=== PATIENT | male | born 1980 | race Caucasian/White ===

== ENCOUNTER → 2020-04-29 | Outpatient (CLI) | payer BC ==
[~2020-04-29] MED LIST: COLE1TAB2 PO; CYCL-259 PO; DAPA10TA PO; GABA300C PO; GLIM4TAB8 PO; LIPA1CAP48 PO; METF500T17 PO; METO25TA91 PO; OMEP-110 PO; OXYC-307 PO; SEMA1PEN SC
[2020-04-29 14:36] LABS: MICROSCOPIC NOT IND
[2020-04-29 14:38] LABS: BASOPHILS % (AUTO) 1 % (0-1); EOSINOPHILS % (AUTO) 4 % (1-7); LYMPHOCYTES % (AUTO) 41 % (22-44); MEAN CORPUSCULAR HEMOGLOBIN 27.3 pg (27.5-34.5); MEAN CORPUSCULAR HGB CONC 32.8 g/dL (33.2-36.2); MEAN PLATELET VOLUME 7.7 fL (7.4-10.4); MONOCYTES % (AUTO) 9 % (2-9); NEUTROPHILS % (AUTO) 46 % (42-75); PLATELET COUNT 284 x10^3/uL (130-400); RED BLOOD COUNT 5.39 x10^6/uL (4.38-5.82); RED CELL DISTRIBUTION WIDTH 14.7 % (9.4-14.8)
[2020-04-29 14:43] LABS: MD NO
[2020-04-29 14:45] LABS: INTERNATIONAL NORMALIZED RATIO 0.96 (0.93-1.1); PROTHROMBIN TIME 9.9 Seconds (9.6-11.5)
[2020-04-29 14:48] LABS: ALBUMIN 3.7 g/dL (3.4-5.0); ANION GAP 7 mmol/L (5-15); CALCIUM 9.5 mg/dL (8.5-10.1); CHLORIDE 105 mmol/L (98-107)
[2020-04-29 14:52] LABS: ALANINE AMINOTRANSFERASE 36 U/L (12-78); ALKALINE PHOSPHATASE 113 U/L (45-117); BILIRUBIN,TOTAL 0.3 mg/dL (0.2-1.0); CREATININE 0.82 mg/dL (0.7-1.3); TOTAL PROTEIN 7.7 g/dL (6.4-8.2)
== END | disposition home or self-care (01) ==
LOC: STAR 13:22
PROVIDERS: ATTEND Neurological Surgery
DX: Z01.812 Encounter for preprocedural laboratory examination (principal); Z01.811 Encounter for preprocedural respiratory examination; Z20.828 Contact with and (suspected) exposure to other viral communicable diseases; M51.16 Intervertebral disc disorders with radiculopathy, lumbar region; R82.90 Unspecified abnormal findings in urine; R94.31 Abnormal electrocardiogram [ECG] [EKG]; M51.26 Other intervertebral disc displacement, lumbar region; M48.061 Spinal stenosis, lumbar region without neurogenic claudication; R79.1 Abnormal coagulation profile
CPT/HCPCS: 36415; 71046; 80053; 81003; 85025; 85610; 85730; 87635; 93005

== ENCOUNTER 2020-05-03 11:22 | Inpatient (IN) | payer BC ==
[~2020-05-03] VITALS: Ht 180.3 cm; Wt 110.2 kg
[2020-05-03] MEDS ORDERED: CHLORHEXIDINE 15 ML UDC ONE (12:34)
[2020-05-03] MEDS ORDERED: CHLORHEXIDINE 15 ML UDC MM STA (12:57)
[2020-05-03] MEDS: LACTATED RINGERS 1,000 ML IV SCH ×2 (13:00→13:10)
[2020-05-03] MEDS ORDERED: FENTANYL PF 250 MCG/5ML ONE ×3 (13:18→15:11)
[2020-05-03] MEDS ORDERED: MIDAZOLAM 1 MG/ML, 2ML ONE (13:18)
[2020-05-03] MEDS ORDERED: EPINEPHRINE 1 MG/ML, 1ML ONE (13:21)
[2020-05-03] MEDS ORDERED: THROMBIN 5,000 UNIT VIAL TP ONE (13:21)
[2020-05-03] MEDS ORDERED: HEPARIN 1,000 UNITS/ML, 30ML ONE (13:21)
[2020-05-03] MEDS ORDERED: BUPIVACAINE/PF 0.5% ONE (13:21)
[2020-05-03] MEDS ORDERED: BACITRACIN 50,000 UNIT ONE (13:22)
[2020-05-03] MEDS ORDERED: ONDANSETRON 2MG/ML, 2ML IVPush PRN ×2 (13:30→16:30)
[2020-05-03] MEDS ORDERED: hydrALAzine 20 MG/ML, 1ML IV PRN (13:30)
[2020-05-03] MEDS ORDERED: LABETALOL 5MG/ML, 20ML IV PRN (13:30)
[2020-05-03] MEDS ORDERED: OXYcodone 5 MG/5 ML ORAL.SOL UDC PO PRN (13:30)
[2020-05-03] MEDS ORDERED: ACETAMINOPHEN 325 MG TABLET PO PRN ×2 (13:30→16:30)
[2020-05-03] MEDS ORDERED: morphine SULFATE 10 MG/ML, 1ML IVPush PRN (13:30)
[2020-05-03] MEDS ORDERED: MEPERIDINE/PF 25MG/0.5ML IVPush PRN (13:30)
[2020-05-03] MEDS ORDERED: CEFAZOLIN 1,000 MG ONE (14:34)
[2020-05-03] MEDS ORDERED: GLYCOPYRROLATE 0.2MG/1ML, 5ML ONE (14:34)
[2020-05-03] MEDS ORDERED: PROPOFOL 10 MG/ML, 20ML ONE (14:34)
[2020-05-03] MEDS ORDERED: ROCURONIUM 10MG/ML,5ML ONE (14:34)
[2020-05-03] MEDS ORDERED: NEOSTIGMINE 1 MG/ML, 10ML ONE (14:34)
[2020-05-03] MEDS ORDERED: METOPROLOL 1 MG/ML, 5ML ONE (15:24)
[2020-05-03] MEDS ORDERED: FENTANYL PF 100 MCG/2ML ONE ×2 (15:59→17:04)
[2020-05-03] MEDS ORDERED: PROMETHAZINE 25 MG/ML, 1ML IM PRN (16:30)
[2020-05-03] MEDS ORDERED: MAGNESIUM HYDROXIDE 8%, 30ML UDC PO PRN (16:30)
[2020-05-03] MEDS ORDERED: [UNRECOGNIZED DRUG - OTHER] PO SCH (16:30)
[2020-05-03] MEDS ORDERED: ENOXAPARIN 40 MG/0.4 ML SQ SCH (16:30)
[2020-05-03] MEDS ORDERED: BISACODYL 10 MG SUPP PR PRN (16:30)
[2020-05-03] MEDS ORDERED: METHOCARBAMOL 1,000 MG in DEXTROSE 5% 100 ML IV ONE (16:30)
[2020-05-03] MEDS ORDERED: AMYLASE PO SCH (16:30)
[2020-05-03] MEDS ORDERED: PROTEASE PO SCH (16:30)
[2020-05-03] MEDS ORDERED: HYDROcodone/APAP 5/325 TABLET PO PRN (16:30)
[2020-05-03] MEDS ORDERED: PHARMACY MAY ADJ FOR RENAL FX MC PRN (16:30)
[2020-05-03] MEDS ORDERED: CYCLOBENZAPRINE 10 MG TABLET PO PRN (16:30)
[2020-05-03] MEDS ORDERED: INSULIN REGULAR 100 UNITS/ML, 3ML VIAL SQ-INSULIN PRN (16:30)
[2020-05-03] MEDS ORDERED: LIPASE PO SCH (16:30)
[2020-05-03] MEDS ORDERED: SENNA/DOCUSATE TABLET PO PRN (16:30)
[2020-05-03] MEDS ORDERED: HYDROmorphone 1 MG/ML, 1ML INJ ONE (16:44)
[2020-05-03] MEDS ORDERED: OXYcodone 5 MG/5 ML ORAL.SOL UDC ONE (16:45)
[2020-05-03] MEDS: HYDROmorphone 1 MG/ML, 1ML INJ IVPush PRN ×6 (16:45→23:49)
[2020-05-03] MEDS: FENTANYL PF 100 MCG/2ML IV PRN ×2 (17:06→17:19)
[2020-05-03] MEDS ORDERED: HYDROmorphone 2 MG/ML, 1ML ONE (17:20)
[2020-05-03] MEDS ORDERED: DIPHENHYDRAMINE 50 MG/ML, 1ML ONE (17:47)
[2020-05-03] MEDS: GABAPENTIN 300 MG CAPSULE PO SCH (19:42)
[2020-05-03 20:47] VITALS: BP 117/78
[2020-05-03] MEDS: SODIUM CHLORIDE FLUSH 10ML SYR IVF SCH (21:00)
[2020-05-03] MEDS: [UNRECOGNIZED DRUG - OTHER] PO SCH (21:00)
[2020-05-03] MEDS: PROTEASE PO SCH (21:00)
[2020-05-03] MEDS: LIPASE PO SCH (21:00)
[2020-05-03] MEDS: AMYLASE PO SCH (21:00)
[2020-05-03] MEDS: COLESTIPOL 1 GM TABLET PO SCH (21:22)
[2020-05-03] MEDS: OXYcodone/APAP 5/325MG TABLET PO PRN (21:22)
[2020-05-03] MEDS: CEFAZOLIN PMX 1GM/50ML 50 ML IVPB SCH (21:24)
[2020-05-03] MEDS: DIPHENHYDRAMINE 50 MG/ML, 1ML IVPush PRN (21:34)
[2020-05-03 23:40] VITALS: BP 118/57
[2020-05-04] MEDS: OXYcodone/APAP 5/325MG TABLET PO PRN ×4 (01:29→19:56)
[2020-05-04] MEDS: DIPHENHYDRAMINE 50 MG/ML, 1ML IVPush PRN ×2 (01:29→05:43)
[2020-05-04] MEDS: HYDROmorphone 1 MG/ML, 1ML INJ IVPush PRN ×3 (03:28→13:12)
[2020-05-04] MEDS: NS + 20MEQ KCL 1,000 ML IV SCH ×3 (03:28→19:30)
[2020-05-04 03:32] VITALS: BP 107/75
[2020-05-04] MEDS: CEFAZOLIN PMX 1GM/50ML 50 ML IVPB SCH ×2 (05:25→19:55)
[2020-05-04] MEDS: OMEPRAZOLE 20 MG CAPSULE.DR PO SCH (05:28)
[2020-05-04] MEDS ORDERED: VANCOMYCIN 1,000 MG ONE (06:17)
[2020-05-04] MEDS ORDERED: BUPIVACAINE/PF 0.5% ONE (06:17)
[2020-05-04] MEDS ORDERED: BACITRACIN 50,000 UNIT ONE (06:17)
[2020-05-04] MEDS ORDERED: EPINEPHRINE 1 MG/ML, 1ML ONE (06:17)
[2020-05-04 06:20] VITALS: BP 114/76
[2020-05-04] MEDS: METOPROLOL SUCCINATE 25 MG TAB.ER.24H PO SCH (07:31)
[2020-05-04] MEDS: GABAPENTIN 300 MG CAPSULE PO SCH ×3 (07:33→21:00)
[2020-05-04] MEDS: COLESTIPOL 1 GM TABLET PO SCH ×2 (07:44→21:00)
[2020-05-04] MEDS: TEMPLATE NON-FORMULARY MED. (Dapagliflozin Propanediol (Farxiga) 10 MG) PO SCH (09:00)
[2020-05-04] MEDS: [UNRECOGNIZED DRUG - OTHER] PO SCH ×3 (09:00→21:00)
[2020-05-04] MEDS: AMYLASE PO SCH ×3 (09:00→21:00)
[2020-05-04] MEDS: LIPASE PO SCH ×3 (09:00→21:00)
[2020-05-04] MEDS: PROTEASE PO SCH ×3 (09:00→21:00)
[2020-05-04] MEDS: SODIUM CHLORIDE FLUSH 10ML SYR IVF SCH (09:00)
[2020-05-04 13:35] VITALS: BP 106/74
[2020-05-04] MEDS ORDERED: MIDAZOLAM 1 MG/ML, 2ML ONE (13:42)
[2020-05-04] MEDS ORDERED: FENTANYL PF 250 MCG/5ML ONE ×2 (13:46→15:58)
[2020-05-04] MEDS ORDERED: CHLORHEXIDINE 15 ML UDC MM STA (14:07)
[2020-05-04] MEDS ORDERED: MEPERIDINE/PF 25MG/0.5ML IVPush PRN (14:30)
[2020-05-04] MEDS ORDERED: PROMETHAZINE 25 MG/ML, 1ML IVPush PRN (14:30)
[2020-05-04] MEDS ORDERED: ONDANSETRON 2MG/ML, 2ML IVPush PRN (14:30)
[2020-05-04] MEDS ORDERED: DIPHENHYDRAMINE 50 MG/ML, 1ML IVPush PRN (14:30)
[2020-05-04] MEDS ORDERED: DIAZEPAM 5 MG/ML, 2ML IVPush PRN (14:30)
[2020-05-04] MEDS ORDERED: HYDROmorphone 1 MG/ML, 1ML INJ IVPush PRN (14:30)
[2020-05-04] MEDS ORDERED: OXYcodone 5 MG/5 ML ORAL.SOL UDC PO PRN (14:30)
[2020-05-04] MEDS ORDERED: LIDOCAINE PF 2%, 5ML ONE (14:53)
[2020-05-04] MEDS ORDERED: DEXAMETHASONE 4 MG/ML, 1ML ONE (14:53)
[2020-05-04] MEDS ORDERED: BUPIVACAINE/PF 0.5% INFIL ONE (15:34)
[2020-05-04] MEDS ORDERED: METHOCARBAMOL 1,000 MG in DEXTROSE 5% 100 ML IV ONE ×2 (17:30→19:30)
[2020-05-04] MEDS ORDERED: FENTANYL PF 100 MCG/2ML ONE (17:40)
[2020-05-04] MEDS: FENTANYL PF 100 MCG/2ML IV PRN ×3 (17:42→18:14)
[2020-05-04] MEDS ORDERED: DIPHENHYDRAMINE 50 MG/ML, 1ML ONE (17:53)
[2020-05-04] MEDS ORDERED: OXYcodone 5 MG/5 ML ORAL.SOL UDC ONE (18:11)
[2020-05-04 19:20] VITALS: BP 113/73
[2020-05-04] MEDS ORDERED: PROMETHAZINE 25 MG/ML, 1ML IM PRN (19:30)
[2020-05-04] MEDS ORDERED: DIPHENHYDRAMINE 50 MG/ML, 1ML IM PRN (19:30)
[2020-05-04] MEDS ORDERED: DIPHENHYDRAMINE 25 MG CAPSULE PO PRN (19:30)
[2020-05-04] MEDS ORDERED: ONDANSETRON 2MG/ML, 2ML IV PRN (19:30)
[2020-05-04] MEDS ORDERED: LABETALOL 5MG/ML, 20ML IV PRN (19:30)
[2020-05-04] MEDS ORDERED: morphine SULFATE 10 MG/ML, 1ML IV PRN (19:30)
[2020-05-04] MEDS ORDERED: BISACODYL 10 MG SUPP PR PRN (19:30)
[2020-05-04] MEDS ORDERED: METHOCARBAMOL 750 MG TABLET PO PRN (19:30)
[2020-05-04] MEDS ORDERED: SODIUM CHLORIDE 0.9% 1,000ML IV PRN (19:30)
[2020-05-04] MEDS ORDERED: OXYcodone IR 5MG TABLET PO PRN (19:30)
[2020-05-04] MEDS ORDERED: KETOROLAC 30 MG/1 ML IVPush ONE (23:00)
[2020-05-04 23:31] VITALS: BP 106/68
[2020-05-05] MEDS: HYDROmorphone 1 MG/ML, 1ML INJ IV PRN ×6 (00:28→23:30)
[2020-05-05] MEDS: CEFAZOLIN PMX 1GM/50ML 50 ML IVPB SCH (03:26)
[2020-05-05] MEDS: DIPHENHYDRAMINE 50 MG/ML, 1ML IVPush PRN ×3 (03:36→23:35)
[2020-05-05 03:50] VITALS: BP 115/73
[2020-05-05 05:23] LABS: ANION GAP 6 mmol/L (5-15); CHLORIDE 103 mmol/L (98-107); CREATININE 0.65 mg/dL (0.7-1.3)
[2020-05-05 05:36] LABS: BASOPHILS % (AUTO) 0 % (0-1); EOSINOPHILS % (AUTO) 0 % (1-7); LYMPHOCYTES % (AUTO) 17 % (22-44); MEAN CORPUSCULAR HEMOGLOBIN 27.9 pg (27.5-34.5); MEAN CORPUSCULAR HGB CONC 33.3 g/dL (33.2-36.2); MEAN PLATELET VOLUME 8.1 fL (7.4-10.4); MONOCYTES % (AUTO) 14 % (2-9); NEUTROPHILS % (AUTO) 69 % (42-75); PLATELET COUNT 145 x10^3/uL (130-400); RED BLOOD COUNT 4.08 x10^6/uL (4.38-5.82); RED CELL DISTRIBUTION WIDTH 14.7 % (9.4-14.8)
[2020-05-05 05:37] LABS: MD NO
[2020-05-05] MEDS ORDERED: BUPIVACAINE/PF 0.5% ONE (06:24)
[2020-05-05] MEDS ORDERED: EPINEPHRINE 1 MG/ML, 1ML ONE (06:24)
[2020-05-05] MEDS ORDERED: BACITRACIN 50,000 UNIT ONE (06:24)
[2020-05-05] MEDS ORDERED: VANCOMYCIN 1,000 MG ONE (06:24)
[2020-05-05] MEDS: METHOCARBAMOL 750 MG TABLET PO PRN (06:29)
[2020-05-05] MEDS: OMEPRAZOLE 20 MG CAPSULE.DR PO SCH (06:29)
[2020-05-05 08:12] VITALS: BP 104/68
[2020-05-05] MEDS: NS + 20MEQ KCL 1,000 ML IV SCH ×3 (09:27→20:00)
[2020-05-05] MEDS: METOPROLOL SUCCINATE 25 MG TAB.ER.24H PO SCH (09:28)
[2020-05-05] MEDS: GABAPENTIN 300 MG CAPSULE PO SCH ×3 (09:28→21:39)
[2020-05-05] MEDS: GLIMEPIRIDE 4 MG TABLET PO SCH (09:29)
[2020-05-05] MEDS: SENNA/DOCUSATE TABLET PO SCH (09:29)
[2020-05-05] MEDS: AMYLASE PO SCH ×3 (09:30→21:00)
[2020-05-05] MEDS: LIPASE PO SCH ×3 (09:30→21:00)
[2020-05-05] MEDS: TEMPLATE NON-FORMULARY MED. (Dapagliflozin Propanediol (Farxiga) 10 MG) PO SCH (09:30)
[2020-05-05] MEDS: [UNRECOGNIZED DRUG - OTHER] PO SCH ×3 (09:30→21:00)
[2020-05-05] MEDS: PROTEASE PO SCH ×3 (09:30→21:00)
[2020-05-05] MEDS: COLESTIPOL 1 GM TABLET PO SCH ×2 (09:32→21:00)
[2020-05-05 12:47] VITALS: BP 110/64
[2020-05-05] MEDS ORDERED: FENTANYL PF 250 MCG/5ML ONE (14:49)
[2020-05-05] MEDS ORDERED: PROPOFOL 10 MG/ML, 20ML ONE (15:17)
[2020-05-05] MEDS ORDERED: NEOSTIGMINE 1 MG/ML, 10ML ONE (15:17)
[2020-05-05] MEDS ORDERED: SUCCINYLCHOLINE 20 MG/ML, 10ML ONE (15:17)
[2020-05-05] MEDS ORDERED: ONDANSETRON 2MG/ML, 2ML ONE (15:17)
[2020-05-05] MEDS ORDERED: DEXAMETHASONE 4 MG/ML, 1ML ONE (15:17)
[2020-05-05] MEDS ORDERED: ROCURONIUM 10MG/ML,5ML ONE (15:17)
[2020-05-05] MEDS ORDERED: CEFAZOLIN 1,000 MG ONE (15:17)
[2020-05-05] MEDS ORDERED: GLYCOPYRROLATE 0.2MG/1ML, 5ML ONE (15:17)
[2020-05-05] MEDS ORDERED: CHLORHEXIDINE 15 ML UDC ONE (15:58)
[2020-05-05] MEDS ORDERED: CHLORHEXIDINE 15 ML UDC MM ONE (16:00)
[2020-05-05] MEDS ORDERED: FENTANYL PF 100 MCG/2ML ONE ×4 (17:19→19:40)
[2020-05-05] MEDS ORDERED: OXYcodone 5 MG/5 ML ORAL.SOL UDC PO PRN (17:30)
[2020-05-05] MEDS ORDERED: LORazepam 2 MG/ML, 1ML IVPush PRN (17:30)
[2020-05-05] MEDS ORDERED: PROMETHAZINE 25 MG/ML, 1ML IVPush PRN (17:30)
[2020-05-05] MEDS ORDERED: METHOCARBAMOL 1,000 MG in DEXTROSE 5% 100 ML IV PRN (17:30)
[2020-05-05] MEDS ORDERED: DIAZEPAM 5 MG/ML, 2ML IVPush PRN (17:30)
[2020-05-05] MEDS ORDERED: METOPROLOL 1 MG/ML, 5ML IV PRN (17:30)
[2020-05-05] MEDS ORDERED: ONDANSETRON 2MG/ML, 2ML IVPush PRN ×2 (17:30→19:30)
[2020-05-05] MEDS ORDERED: PROMETHAZINE 25 MG SUPP PR PRN (17:30)
[2020-05-05] MEDS ORDERED: LABETALOL 5MG/ML, 20ML IV PRN (17:30)
[2020-05-05] MEDS ORDERED: ACETAMINOPHEN 325 MG TABLET PO PRN ×2 (17:30→19:30)
[2020-05-05] MEDS ORDERED: HYDROcodone/APAP 5/325 TABLET PO PRN (19:30)
[2020-05-05] MEDS ORDERED: HYDROmorphone 1 MG/ML, 1ML INJ IVPush PRN (19:30)
[2020-05-05] MEDS ORDERED: BISACODYL 10 MG SUPP PR PRN (19:30)
[2020-05-05] MEDS ORDERED: DIPHENHYDRAMINE 50 MG/ML, 1ML IVPush PRN (19:30)
[2020-05-05] MEDS ORDERED: INSULIN REGULAR 100 UNITS/ML, 3ML VIAL SQ-INSULIN PRN (19:30)
[2020-05-05] MEDS ORDERED: MAGNESIUM HYDROXIDE 8%, 30ML UDC PO PRN (19:30)
[2020-05-05] MEDS ORDERED: PHARMACY MAY ADJ FOR RENAL FX MC PRN (19:30)
[2020-05-05] MEDS ORDERED: PROMETHAZINE 25 MG/ML, 1ML IM PRN (19:30)
[2020-05-05] MEDS ORDERED: METHOCARBAMOL 1,000 MG in DEXTROSE 5% 100 ML IV ONE (19:30)
[2020-05-05] MEDS ORDERED: SENNA/DOCUSATE TABLET PO PRN (19:30)
[2020-05-05] MEDS ORDERED: HYDROmorphone 2 MG/ML, 1ML ONE (19:40)
[2020-05-05] MEDS ORDERED: OXYcodone 5 MG/5 ML ORAL.SOL UDC ONE (19:40)
[2020-05-05] MEDS: FENTANYL PF 100 MCG/2ML IV PRN ×2 (19:45→19:50)
[2020-05-05] MEDS: OXYcodone/APAP 10/325MG TABLET PO PRN (19:50)
[2020-05-05] MEDS: HYDROmorphone 1 MG/ML, 1ML INJ IVPush PRN ×4 (19:55→20:30)
[2020-05-05 20:26] VITALS: BP 117/71
[2020-05-05] MEDS: SODIUM CHLORIDE FLUSH 10ML SYR IVF SCH (21:00)
[2020-05-05] MEDS: metFORMIN 500 MG TABLET PO SCH (21:00)
[2020-05-05] MEDS: ENOXAPARIN 40 MG/0.4 ML SQ SCH (21:39)
[2020-05-06] MEDS: CEFAZOLIN PMX 1GM/50ML 50 ML IVPB SCH ×2 (00:02→08:38)
[2020-05-06 00:32] VITALS: BP 121/68
[2020-05-06] MEDS: OXYcodone/APAP 10/325MG TABLET PO PRN ×5 (01:48→20:06)
[2020-05-06] MEDS: HYDROmorphone 1 MG/ML, 1ML INJ IV PRN ×6 (02:41→22:14)
[2020-05-06] MEDS: NS + 20MEQ KCL 1,000 ML IV SCH ×4 (02:46→15:46)
[2020-05-06] MEDS ORDERED: METHOCARBAMOL 750 MG TABLET PO PRN (04:00)
[2020-05-06] MEDS: METHOCARBAMOL 750 MG TABLET PO PRN ×3 (04:03→20:05)
[2020-05-06 04:04] VITALS: BP 100/63
[2020-05-06 05:22] LABS: BASOPHILS % (AUTO) 0 % (0-1); EOSINOPHILS % (AUTO) 2 % (1-7); LYMPHOCYTES % (AUTO) 26 % (22-44); MEAN CORPUSCULAR HEMOGLOBIN 27.8 pg (27.5-34.5); MEAN CORPUSCULAR HGB CONC 33.1 g/dL (33.2-36.2); MEAN PLATELET VOLUME 7.7 fL (7.4-10.4); MONOCYTES % (AUTO) 11 % (2-9); NEUTROPHILS % (AUTO) 61 % (42-75); PLATELET COUNT 150 x10^3/uL (130-400); RED BLOOD COUNT 3.44 x10^6/uL (4.38-5.82); RED CELL DISTRIBUTION WIDTH 14.8 % (9.4-14.8)
[2020-05-06 05:31] LABS: ANION GAP 7 mmol/L (5-15); CALCIUM 7.7 mg/dL (8.5-10.1); CHLORIDE 105 mmol/L (98-107)
[2020-05-06 05:39] LABS: MD NO
[2020-05-06] MEDS: OMEPRAZOLE 20 MG CAPSULE.DR PO SCH (05:54)
[2020-05-06 07:20] VITALS: BP 130/83
[2020-05-06] MEDS: MAGNESIUM HYDROXIDE 8%, 30ML UDC PO PRN (08:38)
[2020-05-06] MEDS: METOPROLOL SUCCINATE 25 MG TAB.ER.24H PO SCH (08:39)
[2020-05-06] MEDS: SENNA/DOCUSATE TABLET PO SCH (08:39)
[2020-05-06] MEDS: metFORMIN 500 MG TABLET PO SCH ×2 (08:39→17:18)
[2020-05-06] MEDS: GABAPENTIN 300 MG CAPSULE PO SCH ×3 (08:39→20:04)
[2020-05-06] MEDS: GLIMEPIRIDE 4 MG TABLET PO SCH ×2 (08:39→08:41)
[2020-05-06] MEDS: [UNRECOGNIZED DRUG - OTHER] PO SCH ×3 (08:40→21:00)
[2020-05-06] MEDS: COLESTIPOL 1 GM TABLET PO SCH ×2 (08:40→20:04)
[2020-05-06] MEDS: LIPASE PO SCH ×3 (08:40→21:00)
[2020-05-06] MEDS: AMYLASE PO SCH ×3 (08:40→21:00)
[2020-05-06] MEDS: TEMPLATE NON-FORMULARY MED. (Dapagliflozin Propanediol (Farxiga) 10 MG) PO SCH (08:40)
[2020-05-06] MEDS: PROTEASE PO SCH ×3 (08:40→21:00)
[2020-05-06] MEDS: SODIUM CHLORIDE FLUSH 10ML SYR IVF SCH ×2 (08:40→20:06)
[2020-05-06] MEDS ORDERED: SEMAGLUTIDE 1 MG HOMEINJ SCH (09:00)
[2020-05-06 14:15] VITALS: BP 101/65
[2020-05-06 19:00] VITALS: BP 122/66
[2020-05-06] MEDS: ENOXAPARIN 40 MG/0.4 ML SQ SCH (20:04)
[2020-05-07 00:40] VITALS: BP 92/59
[2020-05-07] MEDS: NS + 20MEQ KCL 1,000 ML IV SCH ×4 (01:00→10:47)
[2020-05-07] MEDS: OXYcodone/APAP 10/325MG TABLET PO PRN ×2 (01:50→08:11)
[2020-05-07] MEDS: MAGNESIUM HYDROXIDE 8%, 30ML UDC PO PRN (05:10)
[2020-05-07] MEDS: METHOCARBAMOL 750 MG TABLET PO PRN (05:10)
[2020-05-07] MEDS: OMEPRAZOLE 20 MG CAPSULE.DR PO SCH (05:10)
[2020-05-07 05:21] LABS: BASOPHILS % (AUTO) 1 % (0-1); EOSINOPHILS % (AUTO) 3 % (1-7); LYMPHOCYTES % (AUTO) 24 % (22-44); MEAN CORPUSCULAR HEMOGLOBIN 27.9 pg (27.5-34.5); MEAN CORPUSCULAR HGB CONC 33.7 g/dL (33.2-36.2); MEAN PLATELET VOLUME 7.4 fL (7.4-10.4); MONOCYTES % (AUTO) 10 % (2-9); NEUTROPHILS % (AUTO) 63 % (42-75); PLATELET COUNT 170 x10^3/uL (130-400); RED BLOOD COUNT 3.45 x10^6/uL (4.38-5.82); RED CELL DISTRIBUTION WIDTH 14.6 % (9.4-14.8)
[2020-05-07 05:28] LABS: CHLORIDE 105 mmol/L (98-107)
[2020-05-07 05:36] LABS: ANION GAP 10 mmol/L (5-15); CALCIUM 8.2 mg/dL (8.5-10.1); CREATININE 0.45 mg/dL (0.7-1.3)
[2020-05-07 05:56] LABS: MD NO
[2020-05-07 07:16] VITALS: BP 107/69
[2020-05-07] MEDS: metFORMIN 500 MG TABLET PO SCH (08:10)
[2020-05-07] MEDS: GLIMEPIRIDE 4 MG TABLET PO SCH ×2 (08:10→09:00)
[2020-05-07] MEDS: GABAPENTIN 300 MG CAPSULE PO SCH (08:10)
[2020-05-07] MEDS: METOPROLOL SUCCINATE 25 MG TAB.ER.24H PO SCH (08:10)
[2020-05-07] MEDS: COLESTIPOL 1 GM TABLET PO SCH (08:10)
[2020-05-07] MEDS: SENNA/DOCUSATE TABLET PO SCH (08:11)
[2020-05-07] MEDS: PROTEASE PO SCH (09:00)
[2020-05-07] MEDS: LIPASE PO SCH (09:00)
[2020-05-07] MEDS: SODIUM CHLORIDE FLUSH 10ML SYR IVF SCH (09:00)
[2020-05-07] MEDS: TEMPLATE NON-FORMULARY MED. (Dapagliflozin Propanediol (Farxiga) 10 MG) PO SCH (09:00)
[2020-05-07] MEDS: [UNRECOGNIZED DRUG - OTHER] PO SCH (09:00)
[2020-05-07] MEDS: AMYLASE PO SCH (09:00)
[2020-05-07] MEDS ORDERED: OXYC10TA47 PO (11:06)
[2020-05-07] MEDS ORDERED: METH750T87 PO (11:06)
[2020-05-07] MEDS ORDERED: DOCU-131 PO (11:07)
== END 2020-05-07 11:30 | disposition home or self-care (01) | DRG 455 ==
LOC: ORIP 11:22 → 4NE 18:15 → DCLOUNGE 05-07 11:08
PROVIDERS: ADMIT Neurological Surgery; ATTEND Neurological Surgery
PROC: 0SG30A0 Fusion of Lumbosacral Joint with Interbody Fusion Device, Anterior Approach, Anterior Column, Open Approach (ICD-10-PCS; 2020-05-03)
PROC: 4A11X4G Monitoring of Peripheral Nervous Electrical Activity, Intraoperative, External Approach (ICD-10-PCS; 2020-05-03)
PROC: 0SG00A0 Fusion of Lumbar Vertebral Joint with Interbody Fusion Device, Anterior Approach, Anterior Column, Open Approach (ICD-10-PCS; principal; 2020-05-03 13:30)
PROC: 0SG00K1 Fusion of Lumbar Vertebral Joint with Nonautologous Tissue Substitute, Posterior Approach, Posterior Column, Open Approach (ICD-10-PCS; 2020-05-04)
PROC: 0SG30K1 Fusion of Lumbosacral Joint with Nonautologous Tissue Substitute, Posterior Approach, Posterior Column, Open Approach (ICD-10-PCS; 2020-05-04)
PROC: 4A11X4G Monitoring of Peripheral Nervous Electrical Activity, Intraoperative, External Approach (ICD-10-PCS; 2020-05-04)
PROC: 01NB0ZZ Release Lumbar Nerve, Open Approach (ICD-10-PCS; 2020-05-05)
PROC: 01NR0ZZ Release Sacral Nerve, Open Approach (ICD-10-PCS; 2020-05-05)
PROC: 0SG10K1 Fusion of 2 or more Lumbar Vertebral Joints with Nonautologous Tissue Substitute, Posterior Approach, Posterior Column, Open Approach (ICD-10-PCS; 2020-05-05)
PROC: 0SG30K1 Fusion of Lumbosacral Joint with Nonautologous Tissue Substitute, Posterior Approach, Posterior Column, Open Approach (ICD-10-PCS; 2020-05-05)
DX: M47.26 Other spondylosis with radiculopathy, lumbar region (principal); M51.16 Intervertebral disc disorders with radiculopathy, lumbar region; M51.37 Other intervertebral disc degeneration, lumbosacral region; M21.371 Foot drop, right foot; M48.061 Spinal stenosis, lumbar region without neurogenic claudication; M40.30 Flatback syndrome, site unspecified; L98.429 Non-pressure chronic ulcer of back with unspecified severity; L90.5 Scar conditions and fibrosis of skin; F17.210 Nicotine dependence, cigarettes, uncomplicated
CPT/HCPCS: 36415; 72100; 74018; S0020; 72131; 80048; 82962; 85025; 86850; 86900; C1713; C1729; G0378; J0171; J0690; J1100; J1170; J1644; J1650; J1885; J2250; J2405; J2704; J2710; J3010; J3370; J3480; C1763; C1889; J0330; J1200; J2270; J2800; J7120